=== PATIENT | female | born 1955 | race Caucasian/White ===

== ENCOUNTER 2022-07-08 15:48 | Outpatient (CLI) | payer MEDICARE, BC, SELFPAY | END 2022-07-08 15:49 | disposition home or self-care (01) | PROVIDERS: PCP Internal Medicine; Visit Provider Internal Medicine | DX: E78.5 Hyperlipidemia, unspecified (principal); M85.80 Other specified disorders of bone density and structure, unspecified site; F41.9 Anxiety disorder, unspecified | CPT/HCPCS: 80061; 82306 ==

== ENCOUNTER 2022-07-10 14:19 | Outpatient (CLI) | payer MEDICARE, BC, SELFPAY ==
--- NOTE | 2022-07-10 14:40 | CRLHL7_ITS ---
For Patients: As a result of the Cures Act, medical imaging exams and procedure reports are released immediately into your electronic medical record. You may view this report before your referring provider. If you have questions, please contact your health care provider. BILATERAL SCREENING MAMMOGRAM WITH COMPUTER-AIDED DETECTION AND TOMOSYNTHESIS TECHNIQUE: CC and MLO views were obtained. These mammographic images have been obtained using full-field digital technique. These mammographic images were interpreted with the benefit of computer-aided detection. Breast Tomosynthesis was used in this interpretation. COMPARISON FILM: 10/06/20, 08/23/19, 08/03/18. FINDINGS: There are scattered areas of fibroglandular density IMPRESSION: There is no radiographic evidence for malignancy. ASSESSMENT: BI-RADS Category 1: Negative RECOMMENDATION: Routine screening mammogram in 1 year. A lay language report of this examination will be provided to the patient. Rober Arnold M.D. Diagnostic Radiologist [email or web address] Transcribed: 2:40 p.mAsim krishnan/Dictated by: Rober Arnold MD @ 07/11/2022 11:25:00 AM (Electronically Signed)
== END 2022-07-10 14:20 | disposition home or self-care (01) ==
PROVIDERS: PCP Internal Medicine; Visit Provider Internal Medicine
DX: Z12.31 Encounter for screening mammogram for malignant neoplasm of breast (principal)
CPT/HCPCS: 77063; 77067

== ENCOUNTER 2023-10-01 14:54 | Outpatient (CLI) | payer MEDICARE, BC, SELFPAY ==
--- OUTSIDE RECORDS SUMMARY | 2023-10-01 14:57 | XMS_ITS ---
Author Organization [place] Address [address] [place] [address] Care Team Providers Care Museum Assistant Name Role Phone Katherin Gramajo MD Primary Care Provider [phone] Primary Care Care Coordination Status:Closed (Closed) Start date:08/28/2023 End date:08/29/2023 Close reason:Resources given, no ongoing needs Continued Care and Services Coordination
--- OUTSIDE RECORDS SUMMARY | 2023-10-01 14:57 | XMS_ITS | Clinical Summary ---
Author Organization [place] Address [address] [place] [address] Care Team Providers Care Electrophonic Engineer Name Role Phone Katherin Gramajo MD Primary Care Provider [phone] Allergies No known active allergies Medications Medication Sig Dispensed Refills Start Date End Date Status sertraline (ZOLOFT) 50 MG tablet Take 100 mg by mouth daily Active Active Problems Problem Noted Date Diagnosed Date HLD (hyperlipidemia) Family History Medical History Relation Comments Cerebrovascular Disease Father Coronary Artery Disease Father Polycystic Kidney Diease Father Heart Failure Mother Other - See Comments Mother valve repla cement- unknown which one Relation Status Comments Brother Alive Father (Age 86) Mother Alive Sister Alive Social History Tobacco Use Types Packs/Day Years Used Date Smoking Tobacco: Never Alcohol Use Standard Drinks/Week Comments Yes 0 (1 standard drink = 0.6 oz pur e alcohol) occasionally Adolescent Education Answer Date Record ed Getting School Help Needed Not on file 01/19 Sex and Gender Information Value Date Recorded Sex Assigned at Not on file Gender Identity Not on file Sexual Orientation Not on file Last Filed Vital Signs Vital Sign Reading Time Taken Comments Blood Pressure 112/78 08/30/2016 9:10 AM CDT Pulse 66 08/30/2016 9:10 AM CDT Temperature - - Respiratory Rate - - Oxygen Saturation - - Inhaled Oxygen Concentration - - Weight 80.7 kg (178 lb) 08/30/2016 9:10 AM CDT Height 167.6 cm (5' 6) 08/30/2016 9:10 AM CDT Body Mass Index 28.73 08/30/2016 9:10 AM CDT Plan of Treatment Health Maintenance Due Date Last Done Comments ADVANCE CARE PLANNING 1955 ANNUAL REVIEW OF HM ORDERS 1955 CT COLONOGRAPHY 1955 DEXA 1955 FIT 1955 FLEX SIG 1955 sDNA (Cologuard) 1955 HEPATITIS C SCREENING 1972 DTAP/TDAP/TD IMMUNIZATION (1 - Tdap) 06/29/1979 RSV VACCINE ( & 60+) (1 - 1-dose 60+ series) 2014 LIPID 08/30/2017 08/30/2016, 11/0 10/2015, 04/12/2015 GLUCOSE 04/12/2018 04/12/2015 FALL RISK ASSESSMENT 06/29/2019 MEDICARE ANNUAL WELLNESS VISIT 06/29/2019 Pneumococcal Vaccine: 65+ Years (2 of 2 - PPSV23 or PCV20) 08/27/2022 08/27/2021 MAMMO SCREENING 10/06/2022 10/06/2020, 08/05, 08/03/2018, Additional history exists COVID-19 Vaccine ( season) 2022 09/25/2021, 01/11/2021, 07/04/2020, Additional history exists PHQ-2 (once per calendar year) 2023 INFLUENZA VACCINE (Season Ended) 2023 12/15/2019, 12/01/2018, 12/26/2017, Additional history exists COLONOSCOPY 07/02/2033 07/03/2023 COLORECTAL CANCER SCREENING 07/02/2033 ZOSTER IMMUNIZATION Completed 04/26/2019, 01/26/2019, 12/08/2014 HPV IMMUNIZATION Aged Out No longer e ligible based on patient's age to complete this topic IPV IMMUNIZATION Aged Out No longer e ligible based on patient's age to complete this topic MENINGITIS IMMUNIZATION Aged Out No l onger eligible based on patient's age to complete this topic RSV MONOCLONAL ANTIBODY Aged Out No l onger eligible based on patient's age to complete this topic Procedures Procedure Name Priority Date/Time Associated Diagnosis Comments MA SCREENING BILATERAL W/ RAMIRO Routine 10/06/2020 10:25 AM CDT Visit for screening mammogram LIPID PROFILE STAT 08/30/2016 8:36 AM CDT Hyperlipidemia LDL goal <100 GLUCOSE Routine 04/12/2015 from Last 3 Months or Most Recently Relevant to Health Maintenance Results * MA Screen Bilateral w/Ramiro (10/06/2020 10:25 AM CDT) Anatomical Region Laterality Modality Breast Bilateral Mammography Impressions 10/06/2020 1:59 PM CDT IMPRESSION: BI-RADS CATEGORY: 1 - ??NEGATIVE. RECOMMENDED FOLLOW-UP: Annual Mammography. The patient will be notified of the results. DAYLIN CRAIG MD Narrative 10/06/2020 1:59 PM CDT Examination: Bilateral digital screening mammography with computer aided detection including digital breast tomosynthesis, 10/06/2020 10:25 AM. Comparison: 08/27/2019, 08/03/2018 History: No current breast concerns. BREAST DENSITY: Heterogeneously dense. COMMENTS: ??No suspicious finding. Procedure Note Daylin Craig MD - 10/06/2020 Examination: Bilateral digital screening mammography with computer aided detection including digital breast tomosynthesis, 10/06/2020 10:25 AM. Comparison: 08/27/2019, 08/03/2018 History: No current breast concerns. BREAST DENSITY: Heterogeneously dense. COMMENTS: No suspicious finding. IMPRESSION: BI-RADS CATEGORY: 1 - NEGATIVE. RECOMMENDED FOLLOW-UP: Annual Mammography. The patient will be notified of the results. DAYLIN CRAIG MD Lizzette Botello MD IMG MAMMOGRAPHY O RDERABLES * (ABNORMAL) Lipid Profile (08/30/2016 8:36 AM CDT) Cholesterol 227(H) <200 mg/dL [facility] Comment:Desirable: <200 mg/d l Triglycerides 89 <150 mg/dL [facility] Comment:Fasting specimen HDL Cholesterol 82 >49 mg/dL [facility] LDL Cholesterol Calculated 127(H) <100 mg/dL [facility] Comment: Above desirable: ??100-129 mg/dl Borderline High: ??130-159 mg/dL High: ? 160-189 mg/dL Very high: ? >189 mg/dl Non HDL Cholesterol 145(H) <130 mg/dL [facility] Comment: Above Desirable: ??130-159 mg/dl Borderline high: ??160-189 mg/dl High: ? 190-219 mg/dl Very high: ? >219 mg/dl Blood specimen (specimen) 08/30/2016 8:36 AM CDT 08/30/2016 8:41 AM CDT Gurjit Chaves MD LAB - BLOOD ORDERABLES [facility] [address] [place] [address], [facility] [phone] * Glucose (04/12/2015) Glucose 70 - 99 mg/dL [facility] Blood specimen (specimen) 04/12/2015 Patient Reported LAB - BLOOD ORDERABL ES [facility] from Last 3 Months or Most Recently Relevant to Health Maintenance Care Teams Electrophonic Engineer Relationship Specialty Start Date End Date Katherin Gramajo MD [address] [place] [address] PCP - General speech and language tutor 09/22/20
--- OUTSIDE RECORDS SUMMARY | 2023-10-01 14:57 | XMS_ITS | Clinical Summary ---
Author Organization [facility] [employer] [facility] Address [place], [place] [address] Care Team Providers Care Instrument/Control Technician Name Role Phone [facility] Primary Care Provider Unavail able Allergies No known active allergies Medications Medication Sig Dispensed Refills Start Date End Date Status buPROPion (WELLBUTRIN XL) 300 mg Extended-Release tablet Take 300 mg by mouth once daily. 08/27/2021 Active mirtazapine (REMERON) 7.5 mg tabletIndications :Chronic insomnia Take 1 Tablet (7.5 mg) by mouth at bedtime. 90 Tablet 2 09/19/2023 Active mirtazapine (REMERON) 7.5 mg tabletIndications :Chronic insomnia Take 1 Tablet (7.5 mg) by mouth at bedtime. 90 Tablet 3 06/30/2023 09/19/2023 Discontinued( *Availability /Formulary change/Cost of medication) Active Problems Problem Noted Date Diagnosed Date Chronic insomnia 09/05/2021 HLD (hyperlipidemia) 08/21/2020 Encounters Date Type Department Care Team Description 09/17/2023 Refill [facility] [address] [place] [address] Kade Gonzalez MD Refill Request (mirtazapine (REMERON) 7.5 mg tablet) 07/03/2023 Orders Only INTERFACED 1 Rajendra Condon MD <No scans attached> from Last 3 Months Immunizations Name Administration Dates Next Due COVID-19 vaccine (iDentiMob 30mcg/0.3mL) P FMDV 07/04/2020,06/13/2020 DT (Age < 7 years) 03/03/1984 DTP 03/03/1984 Influenza A (H1N1), Inactivated 05/10/2009 Influenza Virus, Unspecified 02/12/2013 Influenza, IIV3 (Age 6-35 mos) 12/15/2019,2015 Influenza, IIV3 (Age >=3 years) 02/12/2013 Influenza, IIV4 12/26/2017,12/08/2014 Influenza, IIV4 (=>6mos) MDV 12/01/2018 Zoster (Shingrix-RZV, recombinant) 04/26/2019, Zoster (Zostavax-ZVL, live) 12/08/2014 Family History Medical History Relation Name Comments Anesthesia Problem Neg. Relation Name Status Comments Neg. Social History Tobacco Use Types Packs/Day Years Used Date Smoking Tobacco: Never Smokeless Tobacco: Never Tobacco Cessation:Counseling Given: Yes Alcohol Use Standard Drinks/Week Comments Yes 0 (1 standard drink = 0.6 oz pur e alcohol) Social Connections Answer Date Recorded Frequency of Communication with Friends and Fami ly Not on file 04/07/2021 Financial Resource Strain Answer Date R ecorded Difficulty of Paying Living Expenses Not on file 04/07/2021 Difficulty of Paying Living Expenses Not on file 04/07/2021 Sex and Gender Information Value Date Recorded Sex Assigned at Not on file Gender Identity Not on file Sexual Orientation Not on file Obstetrics History Last Filed Vital Signs Vital Sign Reading Time Taken Comments Blood Pressure 117/70 07/08/2022 9:56 AM CDT Pulse 105 07/08/2022 9:56 AM CDT Temperature 36.6 ??C (97.9 ??F) 01/10/2016 12:27 PM C DT Respiratory Rate 16 08/08/2009 3:48 PM CDT Oxygen Saturation 98% 07/08/2022 9:56 AM CDT Inhaled Oxygen Concentration - - Weight 74.4 kg (164 lb) 07/08/2022 9:56 AM CDT Height 166.5 cm (5' 5.55) 07/08/2022 9:56 AM CD T Body Mass Index 26.83 07/08/2022 9:56 AM CDT Plan of Treatment Health Maintenance Due Date Last Done Comments Tdap 1965 Depression screening for age 12+ 1966 Hepatitis C screening for ag e 18-79 1972 Tetanus booster 1974 Lipids for age 45-75 06/29/1999 Mammogram for age 45-75 06/29/1999 DEXA/DXA scan for age 65+ 06/29/2019 Medicare Wellness for age 65+ 06/29/2019 Pneumococcal series for age 65+ (1 of 1 - PCV) 06/29/2019 COVID-19 vaccine series (6 - season) 2022 07/09/2022, 09/25/2021, 01/11/2021, Additional history exists BMI (ht and wt on same day) for age 18+ 07/09/2023 07/08/2022, 09/05/2021, 01/10/2016, Additional history exists Influenza for age 65+ 12/07/2023 12/01/2018 , 12/26/2017, 12/08/2014, Additional history exists Colonoscopy through age 75 07/02/203307/02, 06/14/2020, 06/14/2020, Additional history exists Zoster (shingles) series for age 50+ Completed 04/26/2019, 01/26/2019, 12/08/2014 Procedures Procedure Name Priority Date/Time Associated Diagnosis Comments SCAN-COLONOSCOPY 07/03/2023 8:30 AM CDT from Last 3 Months Results * SCAN-COLONOSCOPY (07/03/2023 8:30 AM CDT) Narrative Procedure Note Rajendra Condon MD - 07/03/2023 7:29 AM CDT [facility] [address] [place] [address], [address], [place] [address] Patient Name: Helen Rios Gender: Female Exam Date: 07/03/2023 Visit Number: [id number] Age: 68 Years Date of : 1955 Attending MD: Rajendra Condon MD Medical Record#: [id number] Procedure: Colonoscopy Indications: Previous adenomatous polyp(s) Referring MD: Referral Self Primary MD: Katherin Gramajo MD Medications: Admitting Medications: 0.9% Normal Saline at TKO Intra Procedure Medications: Patient received monitored anesthesia care. Complications: No immediate complications Procedure: An examination of the heart and lungs was performed and found to be withinacceptable limits. . The patient was therefore deemed a reasonablecandidate for endoscopy and sedation. The risks and benefits of the procedure were explained to the patient.After obtaining informed consent, the patient received monitoredanesthesia care and I passed the scope without difficulty via the rectum to the cecum. The appendiceal orificeand ic valve were identified. The scope was retroflexed during theexamination The quality of the prep was good (Miralax/Gatorade DoublePrep). This was a complete examination throughout the entire colon. Findings: Polyp location: ascending colon. Quantity: 2. Size: 6 mm, 5 mm. Polypshape: sessile. Maneuver: polypectomy was performed with a cold snare. Removal: complete. Retrieval: complete. Bleeding: none. Polyp location: transverse colon. Quantity: 1. Size: 3 mm. Polyp shape:sessile. Maneuver: polypectomy was performed with a cold snare. Removal: complete. Retrieval: complete. Bleeding: none. All polyps were > 1 cm apart from each other Anal canal: internal hemorrhoid(s) Impression: Colorectal polyps Internal hemorrhoids Preliminary Plan: The patient and their physician will receive a copy of the pathologyreport as well as pathology-based recommendations for future screening orsurveillance. for polyp surveillance Pathology Results: A: COLON, ASCENDING, POLYPS: 1. Tubular adenomas (2) 2. Negative for high grade dysplasia 3. Per the colonoscopy report: a. Polyp sizes: 5 mm and 6 mm b. Resection: Complete c. Retrieval: Complete 4. Melanosis colI B: COLON, TRANSVERSE, POLYP: 1. Tubular adenoma 2. Negative for high grade dysplasia 3. Per the colonoscopy report: a. Polyp size: 3 mm b. Resection: Complete c. Retrieval: Complete 4. Melanosis colI COMMENTS A, B. The presence of melanosis coli suggests increased epithelial cellturnover. While not specific, melanosis can be seen in patientschronically using laxatives, particularly anthraquinone derivatives. A,B. We are aware of the patient now having between 10 and 19 conventionaladenomatous polyps of the colon ( 3 currently and at least 7 cumulativelyin prior colonoscopies). If the patient has extracolonic manifestations ora family history of cancer, consideration for a referral to a geneticsspecialist for possible genetic testing to evaluate for a potentialpolyposis syndrome (attenuated familial adenomatous polyposis or MYHpolyposis in particular) is reasonable as the results may haveimplications for both the patient and immediate family members. Reference: Janneth Mackey S. When Should Patients Undergo Genetic Testing forHereditary Colon Cancer Syndromes? Clin Gastroenterol Hepatol. 2018Feb;16(2):181-183. Epub 2016Feb 14. PMID: [id number]. <> MICROSCOPIC A: Performed B: Performed Electronically signed by: Grace Starr MD Interpreted at [facility], [address] [place] [address] Orders Instruction(s)/Education: Instruction/Education Timeframe Assessment Colon Cancer Prevention K63.5 Colon Polyps K63.5 Hemorrhoids (Internal) K63.5 Final Plan: Repeat colonoscopy in 3 years for Polyp surveillance. We will attempt to contact you at appropriate intervals via U.S. mail. Wemay not be able to find you or contact you at that time, therefore youshould know that the responsibility for following our recommendation restswith you. If you don't hear from us at the time your procedure is due,please contact our office to schedule an appointment. If your contactinformation should change, please contact our office so that we can updateyour record. _Electronically signed by: Rajendra Condon MD 07/03/2023 cc: Katherin Gramajo MD Rajendra Condon MD OTHER from Last 3 Months Care Teams Instrument/Control Technician Relationship Specialty Start Date End Date Adrian Ovalles PCP - General 04/02/22
--- OUTSIDE RECORDS SUMMARY | 2023-10-01 14:57 | XMS_ITS | Referral Summary ---
Author Organization [place] Address [address] [place] [address] Care Team Providers Care Separator Operator Name Role Phone Katherin Gramajo MD Primary Care Provider [phone] Allergies No known active allergies Medications Medication Sig Dispensed Refills Start Date End Date Status sertraline (ZOLOFT) 50 MG tablet Take 100 mg by mouth daily Active Active Problems Problem Noted Date Diagnosed Date HLD (hyperlipidemia) Social History Tobacco Use Types Packs/Day Years [...] 08/30/2016 9:10 AM CDT Plan of Treatment Not on file Procedures Procedure Name Priority Date/Time Associated Diagnosis [...] 8:36 AM CDT) Cholesterol 227(H) <200 mg/dL [facility] Comment:Desirable: <200 mg/d l Triglycerides 89 <150 mg/dL [facility] Comment:Fasting specimen HDL Cholesterol 82 >49 mg/dL [facility] LDL Cholesterol Calculated 127(H) <100 mg/dL [facility] Comment: Above desirable: ??100-129 mg/dl Borderline High: ??130-159 mg/dL High: ? 160-189 mg/dL Very high: ? >189 mg/dl Non HDL Cholesterol 145(H) <130 mg/dL [facility] Comment: Above Desirable: ??130-159 mg/dl Borderline high: ??160-189 mg/dl High: ? 190-219 mg/dl Very high: ? >219 mg/dl Blood specimen (specimen) 08/30/2016 8:36 AM CDT 08/30/2016 8:41 AM CDT Gurjit Chaves MD LAB - BLOOD ORDERABLES [facility] [address] [place] [address], [facility] [phone] * Glucose (04/12/2015) Glucose 70 - 99 mg/dL [facility] Blood specimen (specimen) 04/12/2015 Patient Reported LAB - BLOOD ORDERABL ES [facility] from Last 3 Months or Most Recently Relevant to Health Maintenance Care Teams Separator Operator Relationship Specialty Start Date End Date Katherin Gramajo MD [address] [place] [address] [phone] (work) PCP - General associate professor of chemistry 09/22/20
--- NOTE | 2023-10-01 15:00 | CRLHL7_ITS ---
For Patients: As a result of the Century Cures Act, medical imaging exams and procedure reports are released immediately into your electronic medical record. You may view this report before your referring provider. If you have questions, please contact your health care provider. DXA BONE MINERAL DENSITY STUDY Reason for exam: Screening osteopenia. Current height (in): 66. Weight (lb): 160. Menopause age: 57. Ethnicity: White. 1. Have you had a previous hip or vertebral fracture? No. 2. Have you had any fractures during your adult life which did not result from significant trauma (e.g., auto accident)? No. 3. Did either of your parents have a hip fracture? Yes. 4. Do you smoke? No. 5. Have you ever taken Glucocorticoids? No. 6. Do you have rheumatoid arthritis? No. 7. Do you have secondary osteoporosis? No. 8. Do you drink 3 or more alcoholic drinks per day? No. 9. Are you being treated for osteoporosis? No. 10. Have you ever taken any of the following medications: Actonel, Evista, Fosamax, Miacalcin, Reclast, Boniva, Forteo, HRT (i.e., estrogen/hormone therapy), Protelos, Prolia, Vitamin D, Calcium, other ??? please specify. ANSWER: Yes, vitamin D. 11. Do you have any of the following medical conditions: Anorexia or bulimia, asthma or emphysema, end stage renal disease, hyperparathyroidism, any seizure disorders, cancer, inflammatory bowel diseases, hysterectomy, other ??? please specify. ANSWER: Yes, hysterectomy. 12. What was your maximum height (inches)? 66. 13. Do you perform weight bearing exercise regularly? Yes. 14. Do you regularly consume dairy products? No. 15. Do you drink caffeinated beverages? No. 16. At what age did your period start? 11. 17. Are you premenopausal? No. 18. How many full-term pregnancies have you had? 2. 19. Have you ever missed your period for more than 6 months in a row (not including or menopause)? No. TECHNIQUE: Bone mineral density study was performed using the [employer] FINDINGS: The results of the study expressed as bone mineral density (BMD) are as follows: Lumbar spine L1 to L4: BMD: 1.019 g/cm2. T-score: -0.3. Z-score: 1.8 Neck Left: BMD: 0.668 g/cm2. T-score: -1.6. Z-score: 0.1 Right: BMD: 0.688 g/cm2. T-score: -1.5. Z-score: 0.3 Total Left: BMD: 0.911 g/cm2. T-score: -0.3. Z-score: 1.2 Right: BMD: 0.801 g/cm2. T-score: -1.2. Z-score: 0.3 IMPRESSION: Osteopenia. *Comparison exams done prior to 09/2019 were performed on different unit, [employer]. FRAX 10-year Fracture Risk Major Osteoporotic Fracture: 16% Hip Fracture: 2.9% Reported Risk Factors: [place] () Neck BMD=0.668, BMI=25.8, parental fracture. LANRE JONES M.D. Transcribed: 2:11 p.m. [email or web address]/Dictated by: Lanre Jones MD @ 10/03/2023 12:26:00 PM (Electronically Signed)
== END 2023-10-01 14:55 | disposition home or self-care (01) ==
PROVIDERS: PCP Internal Medicine; Visit Provider Obstetrics & Gynecology
DX: Z13.820 Encounter for screening for osteoporosis (principal); M85.89 Other specified disorders of bone density and structure, multiple sites; Z78.0 Asymptomatic menopausal state
CPT/HCPCS: 77080

== ENCOUNTER 2023-10-20 11:10 | Outpatient (CLI) | payer MEDICARE, BC, SELFPAY ==
--- OUTSIDE RECORDS SUMMARY | 2023-10-21 20:18 | XMS_ITS | Clinical Summary ---
Author Organization [facility] [place], [place] [address] Care Team Providers Care Mule Rider Name Role Phone [facility] Primary Care Provider Unavail able Allergies No known active allergies Medications Medication Sig Dispensed Refills Start Date End Date Status buPROPion (WELLBUTRIN XL) 300 mg Extended-Release tablet Take 300 mg by mouth once daily. 08/27/2021 Active mirtazapine (REMERON) 7.5 mg tabletIndications:Chr onic insomnia Take 1 Tablet (7.5 mg) by mouth at bedtime. 90 Tablet 2 09/19/2023 Active Active Problems Problem Noted Date Diagnosed Date Chronic insomnia 09/05/2021 HLD (hyperlipidemia) 08/21/2020 Encounters Date Type Department Care Team Description 09/17/2023 Refill [facility] [address] [place] [address] Kade Gonzalez MD Refill Request (mirtazapine (REMERON) 7.5 mg tablet) from Last 3 Months Immunizations Name Administration Dates Next Due COVID-19 vaccine (Propanc 30mcg/0.3mL) P F, MDV 07/04/2020,06/13/2020 DT (Age < 7 years) 03/03/1984 [...] 1 - PCV) 06/29/2019 COVID-19 vaccine series ( season) 2022 07/09/2022, 09/25/2021, 01/11/2021, Additional history [...] 8:30 AM CDT from Last 3 Months or Most Recently Relevant to Health Maintenance Results * SCAN-COLONOSCOPY (07/03/2023 8:30 AM CDT) Narrative Procedure Note Rajendra Condon MD - 07/03/2023 7:29 AM CDT [facility] [address], [address], [place] [address] Patient Name: Helen Rios Gender: Female Exam Date: 07/03/2023 Visit Number: [id number] Age: 68 Years Date of : 1955 Attending MD: Rajendra Condon MD Medical Record#: [id number] Procedure: Colonoscopy Indications: Previous adenomatous polyp(s) Referring [...] Gastroenterol Hepatol. 2018Feb;16(2):181-183. Epub 2016Feb 14. PMID: [id number]. <> MICROSCOPIC A: Performed B: Performed Electronically signed by: Grace Starr MD Interpreted at [facility], [address] [place] [address] Orders Instruction(s)/Education: Instruction/Education Timeframe Assessment Colon Cancer [...] Condon MD OTHER from Last 3 Months or Most Recently Relevant to Health Maintenance Care Teams Mule Rider Relationship Specialty Start Date End Date Adrian Ovalles PCP - General 04/02/22
--- OUTSIDE RECORDS SUMMARY | 2023-10-21 20:18 | XMS_ITS | Clinical Summary ---
Author Organization [facility] Address [address] [place] [address] Care Team Providers Care Production Assembler Name Role Phone Katherin Gramajo MD Primary Care Provider [phone] Allergies No known active allergies Medications Medication [...] (once per calendar year) 2023 INFLUENZA VACCINE (#1) 2023 , 12/01/2018, 12/26/2017, Additional history exists COLONOSCOPY 07/02/2033 [...] 8:36 AM CDT) Cholesterol 227(H) <200 mg/dL [facility] Comment:Desirable: <200 mg/d l Triglycerides 89 <150 mg/dL [facility] Comment:Fasting specimen HDL Cholesterol 82 >49 mg/dL [facility] LDL Cholesterol Calculated 127(H) <100 mg/dL [facility] Comment: Above desirable: ??100-129 mg/dl Borderline High: ??130-159 mg/dL High: ? 160-189 mg/dL Very high: ? >189 mg/dl Non HDL Cholesterol 145(H) <130 mg/dL [facility] Comment: Above Desirable: ??130-159 mg/dl Borderline high: ??160-189 mg/dl High: ? 190-219 mg/dl Very high: ? >219 mg/dl Blood specimen (specimen) 08/30/2016 8:36 AM CDT 08/30/2016 8:41 AM CDT Gurjit Chaves MD LAB - BLOOD ORDERABLES [facility] [address] [place] [address], [facility] [phone] * Glucose (04/12/2015) Glucose 70 - 99 mg/dL [facility] Blood specimen (specimen) 04/12/2015 Patient Reported LAB - BLOOD ORDERABL ES [facility] from Last 3 Months or Most Recently Relevant to Health Maintenance Care Teams Production Assembler Relationship Specialty Start Date End Date Katherin Gramajo MD [address] [place] [id number] PCP - General postulant 09/22/20
--- OUTSIDE RECORDS SUMMARY | 2023-10-21 20:18 | XMS_ITS | Referral Summary ---
Author Organization [facility] Address [address] [place] [address] Care Team Providers Care Share Holder Name Role Phone Katherin Gramajo MD Primary Care Provider [phone] Allergies No known active allergies Medications Medication [...] 8:36 AM CDT) Cholesterol 227(H) <200 mg/dL [facility] Comment:Desirable: <200 mg/d l Triglycerides 89 <150 mg/dL [facility] Comment:Fasting specimen HDL Cholesterol 82 >49 mg/dL [facility] LDL Cholesterol Calculated 127(H) <100 mg/dL [facility] Comment: Above desirable: ??100-129 mg/dl Borderline High: ??130-159 mg/dL High: ? 160-189 mg/dL Very high: ? >189 mg/dl Non HDL Cholesterol 145(H) <130 mg/dL [facility] Comment: Above Desirable: ??130-159 mg/dl Borderline high: ??160-189 mg/dl High: ? 190-219 mg/dl Very high: ? >219 mg/dl Blood specimen (specimen) 08/30/2016 8:36 AM CDT 08/30/2016 8:41 AM CDT Gurjit Chaves MD LAB - BLOOD ORDERABLES [facility] [address] [place] [address], [facility] [phone] * Glucose (04/12/2015) Glucose 70 - 99 mg/dL [facility] Blood specimen (specimen) 04/12/2015 Patient Reported LAB - BLOOD ORDERABL ES [facility] from Last 3 Months or Most Recently Relevant to Health Maintenance Care Teams Share Holder Relationship Specialty Start Date End Date Katherin Gramajo MD [address] [place] [address] [phone] (work) PCP - General superintendent overhead distribution 09/22/20
--- OUTSIDE RECORDS SUMMARY | 2023-10-21 20:18 | XMS_ITS ---
Author Organization [facility] Address [address] [place] [id number] Care Team Providers Care Machine Sander Name Role Phone Katherin Gramajo MD Primary Care Provider [phone] Primary Care Care Coordination Status:Closed (Closed) Start date:08/28/2023 End date:08/29/2023 Close reason:Resources given, no ongoing needs Continued Care and Services Coordination
== END 2023-10-20 11:11 | disposition home or self-care (01) ==
LOC: NFLDREF 10-21 20:16
PROVIDERS: PCP Internal Medicine; Referring Provider Internal Medicine; Visit Provider Internal Medicine
DX: F41.9 Anxiety disorder, unspecified (principal); M85.80 Other specified disorders of bone density and structure, unspecified site; G47.00 Insomnia, unspecified; N95.2 Postmenopausal atrophic vaginitis; E78.5 Hyperlipidemia, unspecified
CPT/HCPCS: 82306

== ENCOUNTER 2023-11-14 14:18 | Outpatient (CLI) | payer MEDICARE, BC, SELFPAY ==
--- NOTE | 2023-11-14 14:40 | CRLHL7_ITS ---
For Patients: As a result of the Century Cures Act, medical imaging exams and procedure reports are released immediately into your electronic medical record. You may view this report before your referring provider. If you have questions, please contact your health care provider. BILATERAL SCREENING MAMMOGRAM WITH COMPUTER-AIDED DETECTION AND TOMOSYNTHESIS TECHNIQUE: CC and MLO views were obtained. These mammographic images have been obtained using full-field digital technique. These mammographic images were interpreted with the benefit of computer-aided detection. Breast Tomosynthesis was used in this interpretation. COMPARISON FILM: 07/10/22, 10/06/20, 08/23/19. FINDINGS: The breasts are heterogeneously dense, which may obscure small masses. IMPRESSION: There is no radiographic evidence for malignancy. ASSESSMENT: BI-RADS Category 1: Negative RECOMMENDATION: Routine screening mammogram in 1 year. A lay language report of this examination will be provided to the patient. Rober Arnold M.D. Diagnostic Radiologist [email or web address] SP/Dictated by: Rober Arnold MD @ 11/17/2023 9:42:00 AM (Electronically Signed)
== END 2023-11-14 14:19 | disposition home or self-care (01) ==
LOC: MAMMO 14:19
PROVIDERS: PCP Internal Medicine; Visit Provider Internal Medicine
DX: Z12.31 Encounter for screening mammogram for malignant neoplasm of breast (principal); R92.2 Inconclusive mammogram
CPT/HCPCS: 77063; 77067

== ENCOUNTER 2024-11-16 13:00 | Outpatient (CLI) | payer MEDICARE, BC, SELFPAY ==
--- NOTE | 2024-11-16 13:20 | CRLHL7_ITS ---
For Patients: As a result of the Century Cures Act, medical imaging exams and procedure reports are released immediately into your electronic medical record. You may view this report before your referring provider. If you have questions, please contact your health care provider. INDICATION: BILATERAL SCREENING MAMMOGRAM, ASYMPTOMATIC 69 Y/O FEMALE COMPARISON: 11/14/2023, 07/10/2022, 10/06/2020 TECHNIQUE: Digital mammogram in CC and MLO projections including computer-aided detection (CAD) and tomosynthesis. BREAST COMPOSITION: The breasts are heterogeneously dense, which may obscure small masses. FINDINGS: No suspicious findings. ASSESSMENT: BI-RADS 1 Negative RECOMMENDATION: Annual screening mammogram. A lay language report of this examination will be provided to the patient. Dictated by: Rober Arnold MD @ 11/17/2024 09:03:58 (Electronically Signed)
== END 2024-11-16 13:01 | disposition home or self-care (01) ==
LOC: MAMMO 13:01
PROVIDERS: PCP Internal Medicine; Visit Provider Internal Medicine
DX: Z12.31 Encounter for screening mammogram for malignant neoplasm of breast (principal); R92.333 Mammographic heterogeneous density, bilateral breasts
CPT/HCPCS: 77063; 77067

== ENCOUNTER 2024-11-25 08:09 | Outpatient (CLI) | payer MEDICARE, BC, SELFPAY | END 2024-11-25 08:10 | disposition home or self-care (01) | PROVIDERS: PCP Internal Medicine; Visit Provider Internal Medicine | DX: E78.5 Hyperlipidemia, unspecified (principal); M85.80 Other specified disorders of bone density and structure, unspecified site | CPT/HCPCS: 80061; 82306 ==

== ENCOUNTER 2024-12-01 10:11 | Outpatient (CLI) | payer MEDICARE, BC, SELFPAY | END 2024-12-01 10:12 | disposition home or self-care (01) | LOC: NFLDREF 12-02 16:54 | PROVIDERS: PCP Internal Medicine; Referring Provider Internal Medicine; Visit Provider Physician Assistant | DX: N30.01 Acute cystitis with hematuria (principal); B96.1 Klebsiella pneumoniae [K. pneumoniae] as the cause of diseases classified elsewhere | CPT/HCPCS: 87086 ==